=== PATIENT | male | born 1950 | race Caucasian/White ===

== ENCOUNTER 2018-10-26 23:33 | Emergency (ER) | END 2018-10-27 02:32 | disposition home or self-care (01) ==

== ENCOUNTER 2018-10-29 11:02 | Emergency (ER) | END 2018-10-29 12:10 | disposition home or self-care (01) ==

== ENCOUNTER 2018-11-10 08:50 | Emergency (ER) | payer OTHER ==
[~2018-11-10] VITALS: Ht 167.6 cm; Wt 66.5 kg
[~2018-11-10 08:50] MED LIST: ACET1TAB40 PO; CEPH-443 PO
[2018-11-10 08:54] VITALS: BP 164/81; PULSE 82; RESP 20; Ht 167.6 cm; Wt 66.5 kg
--- NOTE | 2018-11-10 09:27 | ERD ---
ER Documentation Chief Complaint Chief Complaint Patient here for suture removal HPI Patient is a 68-year-old male who presents the ER for concerns of suture removal. Patient sustained a laceration to his left thumb on 10/26/18. Patient reports taking antibiotics as prescribed. Patient denies any fevers or chills. Patient was given his tetanus vaccination at previous visit. Patient has not followed up with an orthopedic surgeon/hand specialist for his fracture. ROS All systems reviewed and are negative except as per history of present illness. Medications Home Meds Active Scripts Acetaminophen with Codeine (Acetaminophen-Cod #3 Tablet) 1 Each Tablet, 1 TAB PO Q6H PRN for PAIN, #12 TAB Prov:MAYRA DUMAS MD 10/27/18 Cephalexin* (Keflex*) 500 Mg Capsule, 500 MG PO QID for 5 Days, CAP Prov:MAYRA DUMAS MD 10/27/18 Allergies Allergies: Coded Allergies: No Known Allergy (Unverified , 10/27/18) PMhx/Soc History of Surgery: No Hx Miscellaneous Medical Probl: Yes (DM) Hx Alcohol Use: No Hx Substance Use: No Hx Tobacco Use: No Smoking Status: Never smoker FmHx Family History: No diabetes Physical Exam Vitals Vital Signs Date Temp Pulse Resp B/P (MAP) Pulse Ox O2 O2 Flow FiO2 Time Delivery Rate 11/10/18 97.5 82 20 164/81 98 08:54 (108) Physical Exam GENERAL: Well-developed, well-nourished male. Appears in no acute distress. HEAD: Normocephalic, atraumatic. EYES: Pupils are equally reactive bilaterally. EOMs grossly intact. No conjunctival erythema. NECK: Supple. No meningismus. Normal range of motion of the neck. NEUROLOGIC: Alert and oriented. Moving all four extremities without any difficulty. Normal speech. Steady gait. SKIN: Left thumb noted to be in thumb splint. Thumb splint removed. Healing jagged laceration noted at the tip of the left thumb. Tender to palpation over the ITP joint. Mild swelling noted. Decreased range of motion of the ITP joint secondary to swelling. Fingers not in a flexed position. No pain with passive range of motion. Procedures/MDM Suture Removal by me: 7 sutures removed with tweezers and scissors without incident. Wound shows no evidence of infection, foreign body, neurologic injury, vascular injury, open joint or tendon laceration. Patient does have a fracture of his thumb. Patient has not followed up with an forestry support specialist. Patient was advised to follow-up with forestry support specialist and continue to wear thumb splint until seen and cleared by forestry support specialist. Patient to follow up PRN. Departure Diagnosis: Primary Impression: Encounter for removal of sutures Additional Impression: Thumb fracture Encounter type: initial encounter Fracture type: closed Phalanx: unspecified phalanx Fracture alignment: nondisplaced Laterality: unspecified laterality Qualified Codes: S62.509A - Fracture of unspecified phalanx of unspecified thumb, initial encounter for closed fracture Condition: Stable Patient Instructions: Suture Removal, No Complication Referrals: [facility] Hours: Mon-Fri 9:00 AM - 5:00 PM Additional Instructions: Call your primary care doctor TOMORROW for an appointment during the next 1-2 days.See the doctor sooner or return here if your condition worsens before your appointment time. Follow-up with an forestry support specialist for further management of your thumb fracture. Remain in splint until seen and cleared by forestry support specialist. ROMÁN HER PA-C Nov 10, 2018 09:27
== END 2018-11-10 09:21 | disposition home or self-care (01) ==
LOC: FTE 08:50
DX: S62.502A Fracture of unspecified phalanx of left thumb, initial encounter for closed fracture (principal); E11.9 Type 2 diabetes mellitus without complications; X58.XXXA Exposure to other specified factors, initial encounter; Y92.9 Unspecified place or not applicable
CPT/HCPCS: 99281